=== PATIENT | male | born 1965 | race Caucasian/White ===

== ENCOUNTER → 2018-09-10 | Outpatient (CLI) | payer OTHER ==
--- NOTE | 2018-09-10 17:28 | RAD ---
Right hand, 2 views, 09/10/2018: HISTORY: Right hand pain, disability determination There are mild degenerative changes at scattered interphalangeal joints. No erosive changes are seen. There is minimal spurring at the first CMC joint. No fracture or dislocation is evident. IMPRESSION: 1. Mild scattered degenerative changes. 2. No acute bony abnormality is detected. Electronically signed by: Julio Bull MD (09/10/2018 5:23 PM) [facility]
--- NOTE | 2018-09-10 17:29 | RAD ---
EXAM: AP, lateral and lumbosacral spot views of the lumbar spine DATE: 09/10/2018 12:00 AM INDICATION: BACK PAIN COMPARISON: No Prior FINDINGS: For the purposes of this report there are 5 nonrib-bearing lumbar-type vertebral bodies. Mild wedging of the T12 vertebral body, possibly physiologic wedging or from age-indeterminate compression fracture. There may be also mild wedging of the T11 vertebral body of the stomach not well assessed. Vertebral body heights are otherwise preserved. Moderate L3-4 and mild T12-L1, L1-L2, L4-5 intervertebral disc height loss. Moderate facet degenerative changes at L3-4 and below. IMPRESSION: 1. Height loss of the T12 and likely T11 vertebral bodies, may represent physiologic wedging although age-indeterminate compression fracture have similar appearance. 2. No spondylolisthesis. 3. Multilevel degenerative changes as above most prominent at L3-4. Electronically signed by: Higinio Funez MD (09/10/2018 5:25 PM) [id number]
== END | disposition home or self-care (01) ==
LOC: RAD 13:44
PROVIDERS: ATTEND Neurological Surgery
DX: M19.041 Primary osteoarthritis, right hand (principal); M77.9 Enthesopathy, unspecified; M47.896 Other spondylosis, lumbar region
CPT/HCPCS: 72100; 73120